=== PATIENT | female | born 1975 | race Caucasian/White ===

== ENCOUNTER → 2017-04-15 | Day surgery (SDC) | payer OTHER ==
--- NOTE | 2017-04-16 16:20 | PATH ---
Surgical Pathology Report Patient Name: KIRIT VILLALBA [facility]. Rec. #: [id number] /Age/Gender: 1975 (Age: 42) / F Account: [id number] Location: [facility] RADIOLOGY U Taken: 04/15/2017 Received: 04/15/2017 Reported: 04/16/2017 Physicians: Dione Fried M.D. Specimen(s) Received RIGHT BREAST 10 O'CLOCK, 1CM FN CORE BX Clinical History Ultrasound findings: Probably benign Probable fibroadenoma Final Diagnosis BREAST, RIGHT, 10:00, 1 CM FN, CORE BIOPSY : BENIGN BREAST TISSUE SHOWING FIBROADENOMATOID CHANGE AND ASSOCIATED FIBROCYSTIC CHANGES. Electronically Signed Jessie Rios M.D. Gross Description Received in formalin labeled "right breast biopsy 10:00, 1cmfn," is a 1.8 x 1.5 x 0.2 cm aggregate of multiple massey, irregular to cylindrical portions of fibroadipose tissue. The specimen is entirely submitted in one cassette. Time to formalin fixation: 5 minutes Total formalin fixation time: Approximately 7 hours. /04/15/2017 saudi04/15/2017
== END | disposition home or self-care (01) ==
LOC: FRADUS-SUR 12:50
PROVIDERS: ATTEND Internal Medicine
PROC: 0HBT3ZX Excision of Right Breast, Percutaneous Approach, Diagnostic (ICD-10-PCS; principal; 2017-04-15)
DX: D24.1 Benign neoplasm of right breast (principal); N60.11 Diffuse cystic mastopathy of right breast
CPT/HCPCS: 19083; 87899; 88305-TC; A4648; G0206-TC

== ENCOUNTER 2018-03-24 09:26 | Emergency (ER) | payer OTHER ==
[2018-03-24 09:31] VITALS: BP 116/71; PULSE 71; TEMP 98.7; BMI 36.6
--- NOTE | 2018-03-24 09:49 | PDOC ---
History of Present Illness - General Chief Complaint: Pain, Acute Stated Complaint: numbness and pain to left arm Time Seen by Provider: 03/24/18 09:35 - History of Present Illness Initial Comments: 03/24/18 12:21 Chief complaint: Numbness and tingling in the left arm History of present illness: Patient is complains of pain numbness and tingling of the left arm, originating in the shoulder and involving the C8 distribution. This is worse in the morning before arising from sleep. No trauma, no history of heavy work. Review of systems: Denies neck pain, lightheadedness, dizziness, chest pain, shortness of breath, abdominal pain, nausea, vomiting, diarrhea, urinary tract symptoms, vaginal bleeding or discharge. Menses regular. Also admits numbness and tingling of the left cheek of similar duration. Past medical history: Healthy female, child but no other serious medical or surgical problems. No medication. Specifically, no hormones. Social history: Homemaker, no tobacco alcohol or nonprescription drugs, stable home and family Family history: Reviewed and noncontributory including coronary artery disease, stroke, PVD, blood clots, diabetes. Physical exam: Alert and oriented well-developed well-nourished no acute distress cheerful and cooperative Afebrile, vital signs normal PERRLA 4 mm, fundi benign with sharp disc margins and good central venous pulsations. ENT clear Neck supple without bruit mass or nodes. No point tenderness or deformity of the cervical spine. Good range of motion with mild pain only in the posterior left cervical muscles. Chest clear to P&A, full breath sounds bilaterally CV S1 and S2 normal without murmur rub or gallop pulses full and symmetric no JVD or edema no bruits Abdomen soft nontender without mass or organomegaly. No CVAT Skin clear, no rash, adequate turgor and wet mucous membranes Extremities no CCE Neurological C2 to 12 intact. Strength full and symmetric. No focal sensory or motor deficits, including the left upper extremity, despite the patient's complaints of weakness and tingling. Gait stable and unimpaired Impression: Probable cervical radiculopathy, tingling of the face could be an early Olivares's palsy or central nervous system disease Plan: CT, further evaluation depending on results. Past History - Past Medical History Allergies/Adverse Reactions: Allergies Allergy/AdvReac Type Severity Reaction Status Date / Time No Known Allergies Allergy Verified 03/24/18 09:28 Home Medications: Ambulatory Orders Diclofenac Sodium [Voltaren -] 75 mg PO BID #14 tablet. 03/24/18 hydrOXYzine HCL [Atarax -] 25 mg PO TID #15 tablet 03/24/18 COPD: No - Reproductive History (#): 5 Para: 4 Therapeutic (s) & number: No Spontaneous : 0 - Immunization History Immunization Up to Date: Yes - Suicide/Smoking/Psychosocial Hx Smoking Status: No Smoking History: Never smoked Have you smoked in the past 12 months: No Number of Cigarettes Smoked Daily: 0 Hx Alcohol Use: No Drug/Substance Use Hx: No Substance Use Type: None *Physical Exam - Vital Signs Last Vital Signs Temp Pulse Resp BP Pulse Ox 98.7 F 71 16 116/71 98 03/24/18 09:27 03/24/18 09:27 03/24/18 09:27 03/24/18 09:27 03/24/18 09:27 Medical Decision Making - Medical Decision Making 03/24/18 12:28 CT is negative. Patient's neurological exam is entirely normal including good visualization of the fundi. Cervical radiculopathy of the C8 nerve root is most likely. The facial numbness is possibly an early Olivares's palsy Plan: Cervical collar, rest, anti-inflammatory. Discussed the facial numbness with the patient and the need for neurological follow-up. She agrees to see Dr. Fry as recommended within 1 week for further evaluation and treatment, and to return to the emergency room if symptoms worsen. Comfortable with cervical collar in place, discharged in no pain or other distress with her to follow-up as directed *DC/Admit/Observation/Transfer Diagnosis at time of Disposition: Cervical radiculopathy - Discharge Dispostion Disposition: HOME Condition at time of disposition: Stable Decision to Admit order: No - Prescriptions Prescriptions: Diclofenac Sodium [Voltaren -] 75 mg PO BID #14 tablet.dr Hymanne HCL [Atarax -] 25 mg PO TID #15 tablet - Referrals Referrals: Douglas Fry MD [Staff Physician] - 3 days - Patient Instructions Printed Discharge Instructions: DI for Cervical Radiculopathy Additional Instructions: No heavy work with her upper extremities, arms, no lifting or carrying heavy bags. See your primary physician and neurologist as recommended for follow-up. Return to ER if symptoms worsen. - Post Discharge Activity
== END 2018-03-24 11:32 | disposition home or self-care (01) ==
LOC: FER 09:26
DX: M54.12 Radiculopathy, cervical region (principal)
CPT/HCPCS: 70450-TC; 84703; 99282-25

== ENCOUNTER 2018-03-26 04:26 | Emergency (ER) | payer OTHER ==
[2018-03-26 04:51] VITALS: BP 110/53; PULSE 63; TEMP 97.8; BMI 36.6
[2018-03-26] MEDS ORDERED: KETOROLAC TROMETHAMINE 30 MG/1 ML VIAL IM ONE (05:27)
[2018-03-26] MEDS ORDERED: diazePAM 5 MG TABLET PO ONE (05:27)
[2018-03-26] MEDS ORDERED: LIDOCAINE 5% TOPICAL PATCH TP ONE (05:28)
[2018-03-26] MEDS ORDERED: diazePAM 5 MG TABLET ONE (05:38)
[2018-03-26] MEDS ORDERED: LIDOCAINE 5% TOPICAL PATCH ONE (05:39)
[2018-03-26] MEDS ORDERED: KETOROLAC TROMETHAMINE 30 MG/1 ML VIAL ONE (05:39)
--- NOTE | 2018-03-26 05:39 | PDOC ---
History of Present Illness - General History Source: Patient Exam Limitations: No Limitations - History of Present Illness Initial Comments: 43 y/o F hx of asthma presents with L arm pain (predominately along L shoulder) for >1 week, worsening yesterday. Pain starts in L shoulder and radiates up along neck and down to dorsal surface of L hand; has occasional tingling in arm as well. Pain is constant in nature and worse with movement. Denies trauma, heavy lifting and states she is currently unemployed. Patient was seen at [place] 2 days ago, prescribed Diclofenac, which she just started taking yesterday , and was referred to the neurologist, with whom she states she has upcoming appointment next week. States the Diclofenac did not help much with pain. Denies fever, sob, cp, abd pain, n/v, headache, trauma. Patient is R handed. 03/26/18 05:33 <Sparkle Waldrop - Last Filed: 03/26/18 06:35> <Debbie Lang - Last Filed: 03/27/18 01:49> - General Chief Complaint: Pain Stated Complaint: LEFT ARM PAIN Time Seen by Provider: 03/26/18 04:45 Past History - Past Medical History Asthma: Yes COPD: No - Reproductive History (#): 5 Para: 4 Therapeutic (s) & number: No Spontaneous : 0 - Immunization History Immunization Up to Date: Yes - Suicide/Smoking/Psychosocial Hx Smoking Status: No Smoking History: Never smoked Have you smoked in the past 12 months: No Number of Cigarettes Smoked Daily: 0 Information on smoking cessation initiated: No Hx Alcohol Use: No Drug/Substance Use Hx: No Substance Use Type: None <Sparkle Waldrop - Last Filed: 03/26/18 06:35> <Debbie Lang - Last Filed: 03/27/18 01:49> - Past Medical History Allergies/Adverse Reactions: Allergies Allergy/AdvReac Type Severity Reaction Status Date / Time No Known Allergies Allergy Verified 03/26/18 05:36 Home Medications: Ambulatory Orders Diclofenac Sodium [Voltaren -] 75 mg PO BID #14 tablet. 03/24/18 Lidocaine 5% Patch [Lidoderm -] 1 patch TP DAILY #7 patch 03/26/18 Methocarbamol [Robaxin -] 500 mg PO TID PRN #21 tablet 03/26/18 Review of Systems - Review of Systems Comments:: See HPI 03/26/18 05:39 <Sparkle Waldrop - Last Filed: 03/26/18 06:35> *Physical Exam - Vital Signs Last Vital Signs Temp Pulse Resp BP Pulse Ox 97.8 F 63 18 110/53 L 97 03/26/18 04:48 03/26/18 04:48 03/26/18 04:48 03/26/18 04:48 03/26/18 04:48 - Physical Exam General Appearance: No: Apparent Distress Neck: positive: Supple, Tender lateral (Mild TTP along L lateral aspect of neck) . negative: Tender, Rigid, Decreased range of motion, Rigidity, Tender midline Respiratory/Chest: positive: Lungs Clear, Normal Breath Sounds. negative: Respiratory Distress, Accessory Muscle Use Cardiovascular: positive: Regular Rhythm, Regular Rate, S1, S2. negative: Murmur Gastrointestinal/Abdominal: positive: Normal Bowel Sounds, Soft. negative: Tender, Distended, Guarding, Rebound Musculoskeletal: positive: Decreased Range of Motion (+Pain with L shoulder abduction, external rotation and flexion), Other (+TTP along lateral aspect of L shoulder, no swelling, no step-off, no obvious deformity noted) Extremity: positive: Normal Capillary Refill. negative: Cyanosis, Erythema Neurologic: positive: Fully Oriented, Alert, Normal Mood/Affect, Other (Slight hyperesthesia along L upper arm; no sensory deficit noted; 5/5 strength of RUE, strength evaluation of LUE limited due to pain) <Sparkle Waldrop - Last Filed: 03/26/18 06:35> - Vital Signs Last Vital Signs Temp Pulse Resp BP Pulse Ox 97.8 F 63 18 110/53 L 97 03/26/18 04:48 03/26/18 04:48 03/26/18 04:48 03/26/18 04:48 03/26/18 04:48 <Debbie Lang - Last Filed: 03/27/18 01:49> ED Treatment Course - RADIOLOGY Radiology Studies Ordered: Category Date Time Status SHOULDER-LEFT [RAD] Stat Radiology 03/26/18 05:27 Ordered <Sparkle Waldrop - Last Filed: 03/26/18 06:35> - Medications Given in the ED: ED Medications Discontinued Medications Generic Name Dose Route Start Last Admin Trade Name Lynn PRN Reason Stop Dose Admin Diazepam 5 mg 03/26/18 05:27 03/26/18 05:40 Valium - PO 03/26/18 05:28 5 mg ONCE ONE Administration Ketorolac Tromethamine 30 mg 03/26/18 05:27 03/26/18 05:40 Toradol Injection - IM 03/26/18 05:28 30 mg ONCE ONE Administration Lidocaine 1 patch 03/26/18 05:28 03/26/18 05:40 Lidoderm Patch - TP 03/26/18 05:29 1 patch ONCE ONE Administration <Debbie Lang - Last Filed: 03/27/18 01:49> Medical Decision Making - Medical Decision Making 43 y/o F hx of asthma presents with L shoulder pain radiating up to neck and down arm for >1 week. Differentials to consider: tendonitis, cervical radiculopathy, arthritis, ?shoulder impingement (though patient denies participating in any type of particular activities that could precipitate this) ; unlikely fracture/dislocation given no recent trauma or heavy work. Unlikely ACS given no risk factors and given pain is constant in nature and worse with movement. Plan: IM Toradol, PO Valium, Lidocaine patch, warm compress, L shoulder x-ray, reassess 03/26/18 05:43 Patient reassessed and feeling a lot better Left shoulder x-ray reviewed with Dr. Lang - no acute findings noted, no joint space narrowing, no bony spurs noted Advised rest, physical therapy, f/u with PCP and neurologist New rx: Robaxin, Lidocaine patch 03/26/18 06:35 <Sparkle Waldrop - Last Filed: 03/26/18 06:35> - Medical Decision Making Segura Santos 43 YOF with h/o asthma presenting with lateral neck, left arm/ shoulder pain, worse with movement, intermittent x 1 week, worse since yesterday. Seen at [place] ED with dx cervical radiculopathy, rxd diclofenac, which she has been taking. Probable cervical radiculopathy, tingling of the face could be an early Olivares's palsy or central nervous system disease, neg head CT. given analgesia, lido patch, muscle relaxer Xray neg for bony abnormalities DC 03/27/18 01:48 <Debbie Lang - Last Filed: 03/27/18 01:49> *DC/Admit/Observation/Transfer - Discharge Dispostion Decision to Admit order: No <Sparkle Waldrop - Last Filed: 03/26/18 06:35> <Debbie Lang - Last Filed: 03/27/18 01:49> Diagnosis at time of Disposition: Left shoulder pain - Discharge Dispostion Disposition: HOME Condition at time of disposition: Fair - Prescriptions Prescriptions: Lidocaine 5% Patch [Lidoderm -] 1 patch TP DAILY #7 patch Methocarbamol [Robaxin -] 500 mg PO TID PRN #21 tablet PRN Reason: Muscle Spasms - Patient Instructions Printed Discharge Instructions: DI for Shoulder Tendinopathy Additional Instructions: Thank you for choosing [facility]. It was a pleasure taking care of you. If the Diclofenac is upsetting your stomach despite taking it with food, you may instead take Motrin 400 mg every 6 hours by mouth as needed for mild to moderate pain. Take Motrin with food. Do not take both Diclofenac and Motrin together. You may Tylenol along with Motrin to further help with pain. Do not take more than 4000 mg of Tylenol in 1 day. You were also prescribed a muscle relaxer, Robaxin, that you make take as needed for muscle spasms. This medication can make you drowsy Apply lidocaine patch along left shoulder. Avoid performing activities that may further stress the left shoulder Recommend following up with your primary care doctor for further work up and imaging Please follow-up with your neurologist next week as scheduled Also recommend physical therapy Return to the Emergency Department if your symptoms worsen or persist, you have fever, shortness of breath, chest pain, unable to move extremities, loss of sensation or other concerning symptoms.
[2018-03-26] MEDS ORDERED: LIDOCAINE PATCH REMOVAL MC SCH (22:00)
== END 2018-03-26 07:01 | disposition home or self-care (01) ==
LOC: JER 04:26
PROC: 3E0233Z Introduction of Anti-inflammatory into Muscle, Percutaneous Approach (ICD-10-PCS; principal; 2018-03-26)
DX: M25.512 Pain in left shoulder (principal); J45.909 Unspecified asthma, uncomplicated
CPT/HCPCS: 73030-TC-LT-FY; 96372; 99283-25

== ENCOUNTER 2020-08-14 18:22 | Emergency (ER) | payer OTHER ==
[2020-08-14 18:36] VITALS: BP 113/73; PULSE 64; TEMP 98.1; BMI 34.9
[2020-08-14] MEDS ORDERED: KETOROLAC TROMETHAMINE 60 MG/2 ML VIAL IM ONE (19:31)
[2020-08-14] MEDS ORDERED: predniSONE 20 MG TABLET (UD) PO ONE (19:31)
[2020-08-14] MEDS ORDERED: predniSONE 20 MG TABLET (UD) ONE (19:39)
[2020-08-14] MEDS ORDERED: KETOROLAC TROMETHAMINE 60 MG/2 ML VIAL ONE (19:39)
== END 2020-08-14 19:57 | disposition home or self-care (01) ==
LOC: FER 18:22
PROC: 3E0233Z Introduction of Anti-inflammatory into Muscle, Percutaneous Approach (ICD-10-PCS; principal; 2020-08-14)
DX: M67.823 Other specified disorders of tendon, right elbow (principal)
CPT/HCPCS: 99284-25

== ENCOUNTER 2022-12-22 10:57 | Emergency (ER) | payer OTHER ==
[2022-12-22 11:33] VITALS: BP 128/80; PULSE 75; RESP 18; TEMP 98.4; BMI 35.6
[2022-12-22 13:14] LABS: BASO % 1.2 % (0-2.0); EOS % 4.7 % (0-4.5); HEMATOCRIT 41.6 % (32.4-45.2); HEMOGLOBIN 13.9 GM/dL (10.7-15.3); LYMPH % 24.5 % (8-40); MCH 29.8 pg (25.7-33.7); MCHC 33.6 g/dl (32.0-36.0); MEAN CELL VOLUME 88.8 fl (80-96); MEAN PLT VOLUME 9.2 fl (7.5-11.1); MONO % 10.7 % (3.8-10.2); NEUT % 58.9 % (42.8-82.8); PLATELET COUNT 207 10^3/uL (134-434); RBC 4.68 M/mm3 (3.60-5.2); WHITE BLOOD COUNT 6.2 K/mm3 (4.0-10.0)
[2022-12-22 13:41] LABS: POTASSIUM 3.9 mmol/L (3.5-5.1)
[2022-12-22 13:44] LABS: CALCIUM 8.6 mg/dL (8.5-10.1)
[2022-12-22 13:45] LABS: ALBUMIN 3.6 g/dl (3.4-5.0); BLOOD UREA NITROGEN 9.6 mg/dL (7-18)
[2022-12-22 13:48] LABS: CREATININE 0.6 mg/dL (0.55-1.3)
[2022-12-22 13:50] LABS: BILIRUBIN,TOTAL 0.3 mg/dL (0.2-1)
[2022-12-22 13:51] LABS: TOT PROT 7.2 g/dl (6.4-8.2)
[2022-12-22] MEDS ORDERED: ACETAMINOPHEN 500 MG TABLET (FP) PO ONE (14:34)
[2022-12-22] MEDS ORDERED: ACETAMINOPHEN 500 MG TABLET (FP) ONE (14:41)
== END 2022-12-22 15:41 | disposition home or self-care (01) ==
LOC: JERFT 10:57 → JER 10:57 → JERFT 15:41
DX: R07.9 Chest pain, unspecified (principal); R06.02 Shortness of breath; R05.9 Cough, unspecified; R09.81 Nasal congestion; U07.1 COVID-19
CPT/HCPCS: 0241U-QW; 36415; 71046-TC-FY; 80053; 82550; 84484; 85025; 93005; 93010; 99285-25